=== PATIENT | male | born 1960 | race Caucasian/White ===

== ENCOUNTER 2024-12-05 14:10 | Emergency (ER) | payer SELFPAY ==
[2024-12-05] MEDS: amLODIPine 5 MG Tab PO ONE (15:59)
== END 2024-12-05 16:02 | disposition home or self-care (01) ==
LOC: MW.ED 14:10
DX: Z02.89 Encounter for other administrative examinations (principal); I10 Essential (primary) hypertension; Z75.8 Other problems related to medical facilities and other health care; Z79.899 Other long term (current) drug therapy
CPT/HCPCS: 99283; A9270